=== PATIENT | female | born 1960 | race Caucasian/White ===

== ENCOUNTER 2017-12-15 05:40 | Day surgery (SDC) | payer BC, SELFPAY ==
--- NOTE | 2017-12-15 06:05 | PCM.HP.STD ---
Problem List (1) Screening for intestinal cancer Status: Acute History of Present Illness Date of Admission: 12/15/17 The patient is a 57 year old F who presents for a screening colonoscopy via our open access program. She has never had a previous colonoscopy. She denies any acute bowel symptoms. There is no direct family history of colon polyps or colon cancer. She otherwise has a good feeling of health. Several years ago she intentionally lost 100 pounds. She otherwise claims that she is good health. 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 Past Medical History Allergies codeine Allergy (Verified 12/12/17 12:04) Vomiting meperidine [From Demerol] Allergy (Verified 12/12/17 12:04) Rash Home Medications: Ambulatory Orders Medication Instructions Recorded Biotin 10,000 mcg PO DAILY 12/12/17 Calcium Carbonate/Vitamin D3 2 each PO DAILY 12/12/17 [Calcium 600-Vit D3 400 Tablet] Surgical History: total knee arthroplasty - Right Lives: Spouse/ Significant Other Smoking Status: Never smoker Tobacco Use: Non-smoker Alcohol: None Drugs: None - *Family History Maternal History Items: - - No colon polyps or colon cancer Review of Systems Constitutional: Denies: Anorexia Eyes: Denies: Blurred vision HEENT: Denies: Dysphasia Cardiovascular: Denies: Chest Pain Respiratory: Denies: Cough Gastrointestinal: Denies: Abdominal Pain Genitourinary: Denies: Dysuria Musculoskeletal: Denies: Leg Pain Neurological: Denies: Balance problems Psychiatric: Denies: Anxiety Endocrine: Reports: Change in Body Habitus - Previous history of significant weight loss intentionally VTE Information - Inpt Only VTE Present on Admission: No Patient Problems: Active and Suspected Problems Screening for intestinal cancer (Acute) - Physical Exam General: Alert, Oriented x3, Cooperative, No apparent distress HEENT: Atraumatic Oral: Moist Mucosa Neck: Supple, - - Carotids are 3+ bilaterally no bruits Lungs: Clear to auscultation Cardiovascular: Regular rate, Regular Rhythm Abdomen: Bowel Sounds Present, Soft, Non Tender Extremities: No Calf Tenderness Skin: No rashes Lymphatic: No Cervical, Supraclavicular, or Inguinal Adenopathy Neurological: Cranial nerves II-XII grossly intact Psych/Mental Status: Normal Affect Assessment/Plan All Active Problems Screening for intestinal cancer (Acute) I am recommending to the patient a screening colonoscopy with possible biopsy or polypectomy is indicated. She is aware of the technique, benefits, risks, alternatives. She has had an opportunity to ask and have questions answered. She has tolerated her bowel prep. We will proceed as indicated. Allergies include Demerol and codeine Jose Salter M.D., F.A.C.S.
[2017-12-15 06:10] VITALS: BP 116/66; PULSE 57; RESP 18; TEMP 36.6; O2SAT 99; BMI 24.5
[2017-12-15 07:00] VITALS: BP 108/82; BP 116/66; PULSE 55; RESP 16; TEMP 36; O2SAT 100
--- NOTE | 2017-12-15 07:00 | PCM.OPRPT ---
Problem List (1) Screening for intestinal cancer Status: Acute Report of Operation Date of Procedure: 12/15/17 Pre-Operative Diagnosis: Screening for intestinal cancer Post-Operative Diagnosis: Sigmoid diverticulosis, tortuous lax colon Surgery/Procedure Performed:: Colonoscopy Description of Surgical Findings:: Timeout informed consent was obtained. 57-year-old female was taken to the endoscopy suite. She was placed in a left lateral decubitus position. In aliquots throughout the procedure she received 200 mcg of fentanyl and 5 mg of Versed is intravenous sedation. She also received 4 mg of Zofran as an antiemetic. Digital rectal exam performed. Normal anal tone. 3+ hemorrhoids internally. No active mass. Flexible colonoscope inserted the rectum advanced to a tortuous sigmoid colon. The patient reports a 100 pound intentional weight loss several years ago. Her colon was extraordinarily lax and elongated. Transabdominal pressure was required by the splenic flexure in order to get the scope to advance. The patient was additionally placed supine. Slowly and by accordioned the bowel upon the scope the scope was eventually advanced to the cecum. Excessive pressure was not required. The cecum ileocecal valve area was nicely achieved. Bowel prep was very good. The scope was carefully withdrawn from the cecum ascending colon transverse colon descending colon and sigmoid. In the sigmoid colon diverticulosis was identified. No evidence of any luminal narrowing. The scope was withdrawn to the rectum the internal hemorrhoidal changes noted. Excess fluid and air was aspirated free the procedure was completed with the patient tolerating it well. She was taken to the recovery area in satisfactory condition. Impression Long lax colon. Sigmoid diverticulosis Next screening examination recommended in 10 years Cc: Dr. Reg Woody Medications were given at 0635. The scope was inserted 0638. The cecum was reached at 0651. The procedure was completed at 0657 Jose Salter M.D., F.A.C.S. Type of Anesthesia:: IV Sedation
[2017-12-15 07:05] VITALS: BP 116/66; BP 92/62; PULSE 59; RESP 18; O2SAT 100
[2017-12-15 07:10] VITALS: BP 116/66; BP 99/62; PULSE 60; RESP 18; O2SAT 100
[2017-12-15 07:16] VITALS: BP 116/66; BP 93/56; PULSE 65; RESP 18; TEMP 36.3; O2SAT 100
[2017-12-15 07:24] VITALS: BP 116/66
== END 2017-12-15 08:15 | disposition home or self-care (01) ==
LOC: EN 05:40 → AC 05:42
PROVIDERS: Family Provider Family Medicine; PCP Family Medicine; Visit Provider Surgery
PROC: 0DJD8ZZ Inspection of Lower Intestinal Tract, Via Natural or Artificial Opening Endoscopic (ICD-10-PCS; CPT 45378; principal; 2017-12-15 06:25)
DX: Z12.11 Encounter for screening for malignant neoplasm of colon (principal); K57.30 Diverticulosis of large intestine without perforation or abscess without bleeding; K64.8 Other hemorrhoids; Z85.72 Personal history of non-Hodgkin lymphomas
CPT/HCPCS: 45378; 99152; 99153; J7120; J2405